=== PATIENT | male | born 1990 | race Caucasian/White ===

== ENCOUNTER 2025-07-12 13:41 | Emergency (ER) | payer OTHER, SELFPAY ==
[2025-07-12 13:44] VITALS: BP 135/80; PULSE 120; RESP 20; TEMP 37; O2SAT 98; BMI 28.0
--- NOTE | 2025-07-12 14:07 | CT_ITS ---
FINAL REPORT TECHNIQUE: After the administration of oral and intravenous contrast, axial images were obtained through the abdomen and pelvis by computed tomography. The study was performed with techniques to keep radiation dose as low as reasonably achievable, (ALARA). Individual dose reduction techniques using automated exposure control or adjustment of mA and/or kV according to the patient's size were employed. CLINICAL HISTORY: Bloody/mucous stool, abd pain, diverticulitis? FINDINGS: Abdomen: The lung bases are clear. There is moderate fatty infiltration of the liver. The gallbladder is present. The spleen, pancreas, adrenals and kidneys appear unremarkable. The aorta is normal in caliber. There is no free fluid. There are multiple scattered lymph nodes in the mesentery, particularly in the right lower quadrant. Largest of these nodes measures 2.3 cm in greatest dimension on image 54 of series 129. Pelvis: The appendix is unremarkable. The urinary bladder is unremarkable. There is no free fluid. IMPRESSION: Multiple enlarged mesenteric lymph nodes, may be due to mesenteric adenitis. Follow-up CT in 6 months time is recommended to confirm stability or regression. Reviewed, Interpreted and Dictated by Rhett Hayden MD Transcribed by Deborah Tracy Authenticated and [facility]
--- NOTE | 2025-07-12 14:09 | ED_ITS ---
Discharge Plan Disposition Patient Disposition: Home, Self-Care Referrals Follow up/Referrals: John Bazzi II, MD [Staff Physician, Gastroenterology] - See instructions Provider,MD Earle [Referring, Medical] - See instructions Activity Restrictions/Add. Instructions Additional Instructions/Restrictions: You have been seen and evaluated in the emergency department. Please follow-up with a primary care physician regarding elevated blood sugars. Your CT scan today showed adenitis. Please follow-up with Dr. Bazzi of gastroenterology. A referral has been placed on your behalf. You may call [phone]. Return to the ED with worsening symptoms. Clinical Impressions Clinical Impression: Abdominal pain Instructions Patient Instructions: DI for Acute Abdominal Pain Print Language Print Language: Slovak Discharge ED Provider: Ritchie Valentine General Adult HPI <Ritchie Valentine MD - Last Filed: 07/12/25 15:49> General Chief complaint: Abdominal Pain Stated complaint: abd Pain, blood in stool Time Seen by Provider: 07/12/25 13:54 Mode of Arrival: Ambulatory Source of Information: Patient Description of Symptoms (Recalled from ER Triage Doc. by RN): pt is here for abd pain that started last night at 10 pm, nausea but no vomiting, blood and mucous in stool, no hx of belly surgeries History of Present Illness HPI narrative: Xiang Goldberg is a 35-year-old healthy male who presents to the emergency department for complaints of abdominal pain and mucousy/blood-streaked diarrhea. Patient states that he has had chronic issues with diarrhea but is never had constipation. He states that starting last night at around 930, he had nonbloody diarrhea and sharp lower abdominal pain. He states that abdominal pain is a 2 to a 4 at baseline but will have intermittent episodes of becoming extremely sharp and painful and rates him as a 10 out of 10 at that point. He states that these are very transient and only lasts a few seconds. He states that overnight, he had mucousy stools that were streaked with blood. He is concerned because there is a significant family history of diverticulitis and his father at a similar age and his father had a partial colectomy. Patient denies any family history of colon cancer. There are colon polyps in the family. Patient states that his pain is currently a 2 out of 10. Patient has not had any vomiting. Related Data Allergies Allergy/AdvReac Type Severity Reaction Status Date / Time Penicillins Allergy Anaphylaxis Verified 07/12/25 14:12 sulfamethoxazole (From Allergy Hives Verified 07/12/25 14:13 Sulfamethoprim) trimethoprim (From Allergy Hives Verified 07/12/25 14:13 Sulfamethoprim) [facility] <Ritchie Valentine MD - Last Filed: 07/12/25 15:49> [facility] Disclaimer: The information contained in this section may have been updated after the patient was seen, as this information can be updated by other users. Social History (Updated 07/12/25 @ 15:49 by Ritchie Valentine MD) Smoking Status: Never smoker alcohol intake: never current occupational status: employed Travel in the last 8 weeks?: None Have you lived/traveled outside [place] in past 30 days?: No Contact w/someone who lives/traveled outside [place] past 30 days?: No Exposure to someone with infectious disease in past 14 days?: No Do you have a fever (greater than 100.4 F or 38 C)?: No Have you tested positive for COVID-19?: No Exposed to someone with COVID-19 in past 14 days?: No Do you have a sore throat?: No Do you have a cough?: No Do you have any weakness?: No Do you have any diarrhea?: No Are you experiencing any unusual bleeding?: No Do you have any muscle aches/pain?: No Do you have any abdominal pain?: No Are you experiencing loss of taste or smell?: No <Ritchie Valentine MD - Last Filed: 07/12/25 15:49> ROS Obtained: Yes Systems reviewed as appropriate & no additional complaints except as documented Physical Exam <Ritchie Valentine MD - Last Filed: 07/12/25 15:49> General General appearance: alert and in no apparent distress Head Head exam: atraumatic Eye Eye exam: Present normal appearance ENT ENT exam: Present normal external ear exam Neck Neck exam: Present full ROM Chest Chest inspection: Present symmetric chest wall rise Respiratory Respiratory exam: Present normal lung sounds bilaterally; Absent respiratory distress Cardiovascular Cardiovascular exam: Present regular rate and normal rhythm Abdominal Exam Abdominal exam: Present soft and tenderness (Left lower quadrant greater than right lower quadrant); Absent distention, guarding or rigidity exam: Present deferred Extremities Exam Extremities exam: Present normal inspection Back Exam Back exam: Present normal inspection Neurological Exam Neurological exam: Present alert and oriented X3 Psychiatric Psychiatric exam: Present normal affect Skin Skin exam: Present warm and dry Medical Decision Making <Ritchie Valentine MD - Last Filed: 07/12/25 15:49> Medical Records Screening: Per USPSTF and CDC recommendations, given the prevalence of disease in our region, it is our hospital?s policy to screen for HIV and viral Hepatitis for all patients aged 18 and over and those with ongoing risk factors. Matt Inquiry Pt receiving controlled substance: No Vital Signs: 07/12/25 13:44 07/12/25 17:00 Temperature 98.6 F 98.6 F Temperature Source Oral Pulse Rate 90 Pulse Rate [Left Radial] 120 H Respiratory Rate 20 20 Blood Pressure 135/79 Blood Pressure [Right Arm] 135/80 Blood Pressure Mean [Right Arm] 98 02 Sat by Pulse Oximetry 98 Oxygen Delivery Method Room Air Room Air Lab Data Lab Results 07/12/25 13:50: WBC 9.6, RBC 5.07, Hgb 15.4, Hct 44.9, MCV 88.6, MCH 30.4, MCHC 34.3, RDW 12.1, Plt Count 321, MPV 9.7, Neut % (Auto) 66.0, Lymph % (Auto) 24.7, [place] % (Auto) 8.2, Eos % (Auto) 0.6, Baso % (Auto) 0.3, Neut # (Auto) 6.3, Lymph # (Auto) 2.4, [place] # (Auto) 0.8, Eos # (Auto) 0.1, Baso # (Auto) 0.0, Sodium 140, Potassium 4.1, Chloride 97 L, Carbon Dioxide 28, Anion Gap 19.1 H, BUN 17, Creatinine 0.90, Estimated Creat Clear 142, Estimated GFR 97, Est GFR ( Amer) 118, Glucose 306 H, Hemoglobin A1c 10.4 H, Lactate 2.1, Calcium 9.5, Total Bilirubin 0.6, AST 32, ALT 49, Alkaline Phosphatase 81, C-Reactive Protein 30.9 H, Total Protein 8.0, Albumin 4.9, Globulin 3.1, Albumin/Globulin Ratio 1.6, Lipase 107, Urine Color Yellow, Urine Appearance Clear, Urine pH 5.5, Ur Specific [place] 1.015, Urine Protein Negative, Urine Glucose (UA) 3+, Urine Ketones Trace, Urine Blood Negative, Urine Nitrate Negative, Urine Bilirubin Negative, Urine Urobilinogen 0.2, Ur Leukocyte Esterase Negative, Urine RBC Occasional, Urine WBC Occasional, Ur Squamous Epith Cells Occasional, Acetone Level None detected 07/12/25 15:15: VBG pH 7.30 L, VBG pCO2 52.1 H, VBG pO2 27.3 L, VBG HCO3 25.2, VBG Total CO2 26.8, VBG O2 Saturation 48.5 L, VBG Base Excess -1.1, VBG Lactic Acid 2.0 07/12/25 13:50 07/12/25 13:50 Orders (Tests/Meds): ED MEDICATIONS Discontinued Medications Generic Name Dose Route Start Last Admin Trade Name Freq PRN Reason Stop Dose Admin Lactated Ringer's 1,000 mls @ 999 mls/hr 07/12/25 14:09 07/12/25 15:22 Lactated Ringer's 1000 Ml Bag IV 07/12/25 15:09 Infused .Q1H1M ONE Infusion Iopamidol 75 ml 07/12/25 14:52 07/12/25 14:54 Iopamidol-370 (76%);100ml Bottle IV 07/12/25 14:53 75 ml ONCE ONE Administration Sodium Chloride 10 ml 07/12/25 14:52 07/12/25 14:54 Sodium Chloride 0.9% 10ml Syr (Rad Only) IV 07/12/25 14:53 10 ml ONCE ONE Administration ORDERS Category Date Time Status CT abdomen pelvis w con Stat Cat Scan 07/12/25 14:07 Completed Acetone, Serum (Rapid) Stat Lab 07/12/25 13:50 Completed CBC w/Auto Diff [Complete Blood Count Auto Diff] Stat Lab 07/12/25 13:50 Completed CMP [Comprehensive Metabolic Panel] Stat Lab 07/12/25 13:50 Completed CRP [C-Reactive Protein] Stat Lab 07/12/25 13:50 Completed Hemoglobin A1C Stat Lab 07/12/25 13:50 Completed Lactic Acid Stat Lab 07/12/25 13:50 Completed Lipase Stat Lab 07/12/25 13:50 Completed UA [Urinalysis and Microscopic] Stat Lab 07/12/25 13:50 Completed VBG [Venous Blood Gas] Stat RT 07/12/25 15:15 Completed Medical Decision Narrative: Xiang Goldberg is a 35-year-old healthy male who presents to the emergency department for complaints of abdominal pain and mucousy/blood-streaked diarrhea. Patient states that he has had chronic issues with diarrhea but is never had constipation. He states that starting last night at around 930, he had nonbloody diarrhea and sharp lower abdominal pain. He states that abdominal pain is a 2 to a 4 at baseline but will have intermittent episodes of becoming extremely sharp and painful and rates him as a 10 out of 10 at that point. He states that these are very transient and only lasts a few seconds. He states that overnight, he had mucousy stools that were streaked with blood. He is concerned because there is a significant family history of diverticulitis and his father at a similar age and his father had a partial colectomy. Patient denies any family history of colon cancer. There are colon polyps in the family. Patient states that his pain is currently a 2 out of 10. Patient has not had any vomiting. On arrival, patient is tachycardic but otherwise hemodynamically stable. Maintaining appropriate oxygen saturation on room air. Afebrile. Physical exam, as stated above, revealed an overall well-appearing male in no distress. He has some minimal lower abdominal tenderness without guarding or rebound. No peritonitis. Cardiopulmonary exam is unremarkable. Differential diagnosis includes, but is not limited to: Diverticulitis, inflammatory bowel disease, colitis, acute pancreatitis, urinary tract infection, among others. The most morbid conditions were considered and workup was based on these. After studies show no leukocytosis, no anemia, platelets within normal limits. Electrolytes within normal limits. Anion gap is mildly elevated 19.1. Glucose is significantly elevated at 306. Patient has no history of diabetes and last ate toast earlier this morning. Lactate is normal at 2.1. CRP significantly elevated at 30.9. Lipase normal at 107. Urinalysis shows a trace ketones, 3+ glucose, negative nitrate and negative leukocyte esterase without evidence of infection. I added a VBG as well as acetone level to rule out DKA from what appears to be new diagnosis of diabetes given his elevated glucose. VBG showed a very mild respiratory acidosis with pH of 7.3, pCO2 mildly elevated at 52.1, bicarb normal at 26.8. Lactate on VBG is normal at 2. Acetone is negative. At this time, patient CT imaging is pending and care was transferred to the oncoming physician, Dr. Florez, for ultimate disposition. On my interpretation, I do not appreciate any surgical etiology on patient's CT scan. No obvious diverticular disease. Patient may have some inflammatory changes around the rectum, however this is unclear and on my interpretation. Patient will likely require close follow-up with gastroenterology if there is no acute pathology on patient's CT imaging. <Brigitte Florez, DO - Last Filed: 07/12/25 21:34> Vital Signs: 07/12/25 13:44 07/12/25 17:00 Temperature 98.6 F 98.6 F Temperature Source Oral Pulse Rate 90 Pulse Rate [Left Radial] 120 H Respiratory Rate 20 20 Blood Pressure 135/79 Blood Pressure [Right Arm] 135/80 Blood Pressure Mean [Right Arm] 98 02 Sat by Pulse Oximetry 98 Oxygen Delivery Method Room Air Room Air Lab Data Lab Results 07/12/25 13:50: WBC 9.6, RBC 5.07, Hgb 15.4, Hct 44.9, MCV 88.6, MCH 30.4, MCHC 34.3, RDW 12.1, Plt Count 321, MPV 9.7, Neut % (Auto) 66.0, Lymph % (Auto) 24.7, [place] % (Auto) 8.2, Eos % (Auto) 0.6, Baso % (Auto) 0.3, Neut # (Auto) 6.3, Lymph # (Auto) 2.4, [place] # (Auto) 0.8, Eos # (Auto) 0.1, Baso # (Auto) 0.0, Sodium 140, Potassium 4.1, Chloride 97 L, Carbon Dioxide 28, Anion Gap 19.1 H, BUN 17, Creatinine 0.90, Estimated Creat Clear 142, Estimated GFR 97, Est GFR ( Amer) 118, Glucose 306 H, Hemoglobin A1c 10.4 H, Lactate 2.1, Calcium 9.5, Total Bilirubin 0.6, AST 32, ALT 49, Alkaline Phosphatase 81, C-Reactive Protein 30.9 H, Total Protein 8.0, Albumin 4.9, Globulin 3.1, Albumin/Globulin Ratio 1.6, Lipase 107, Urine Color Yellow, Urine Appearance Clear, Urine pH 5.5, Ur Specific [place] 1.015, Urine Protein Negative, Urine Glucose (UA) 3+, Urine Ketones Trace, Urine Blood Negative, Urine Nitrate Negative, Urine Bilirubin Negative, Urine Urobilinogen 0.2, Ur Leukocyte Esterase Negative, Urine RBC Occasional, Urine WBC Occasional, Ur Squamous Epith Cells Occasional, Acetone Level None detected 07/12/25 15:15: VBG pH 7.30 L, VBG pCO2 52.1 H, VBG pO2 27.3 L, VBG HCO3 25.2, VBG Total CO2 26.8, VBG O2 Saturation 48.5 L, VBG Base Excess -1.1, VBG Lactic Acid 2.0 Orders (Tests/Meds): ED MEDICATIONS Discontinued Medications Generic Name Dose Route Start Last Admin Trade Name Freq PRN Reason Stop Dose Admin Lactated Ringer's 1,000 mls @ 999 mls/hr 07/12/25 14:09 07/12/25 15:22 Lactated Ringer's 1000 Ml Bag IV 07/12/25 15:09 Infused .Q1H1M ONE Infusion Iopamidol 75 ml 07/12/25 14:52 07/12/25 14:54 Iopamidol-370 (76%);100ml Bottle IV 07/12/25 14:53 75 ml ONCE ONE Administration Sodium Chloride 10 ml 07/12/25 14:52 07/12/25 14:54 Sodium Chloride 0.9% 10ml Syr (Rad Only) IV 07/12/25 14:53 10 ml ONCE ONE Administration ORDERS Category Date Time Status CT abdomen pelvis w con Stat Cat Scan 07/12/25 14:07 Completed Acetone, Serum (Rapid) Stat Lab 07/12/25 13:50 Completed CBC w/Auto Diff [Complete Blood Count Auto Diff] Stat Lab 07/12/25 13:50 Completed CMP [Comprehensive Metabolic Panel] Stat Lab 07/12/25 13:50 Completed CRP [C-Reactive Protein] Stat Lab 07/12/25 13:50 Completed Hemoglobin A1C Stat Lab 07/12/25 13:50 Completed Lactic Acid Stat Lab 07/12/25 13:50 Completed Lipase Stat Lab 07/12/25 13:50 Completed UA [Urinalysis and Microscopic] Stat Lab 07/12/25 13:50 Completed VBG [Venous Blood Gas] Stat RT 07/12/25 15:15 Completed Medical Decision Narrative: Xiang Goldberg is a 35-year-old healthy male who presents to the emergency department for complaints of abdominal pain and mucousy/blood-streaked diarrhea. Patient states that he has had chronic issues with diarrhea but is never had constipation. He states that starting last night at around 930, he had nonbloody diarrhea and sharp lower abdominal pain. He states that abdominal pain is a 2 to a 4 at baseline but will have intermittent episodes of becoming extremely sharp and painful and rates him as a 10 out of 10 at that point. He states that these are very transient and only lasts a few seconds. He states that overnight, he had mucousy stools that were streaked with blood. He is concerned because there is a significant family history of diverticulitis and his father at a similar age and his father had a partial colectomy. Patient denies any family history of colon cancer. There are colon polyps in the family. Patient states that his pain is currently a 2 out of 10. Patient has not had any vomiting. On arrival, patient is tachycardic but otherwise hemodynamically stable. Maintaining appropriate oxygen saturation on room air. Afebrile. Physical exam, as stated above, revealed an overall well-appearing male in no distress. He has some minimal lower abdominal tenderness without guarding or rebound. No peritonitis. Cardiopulmonary exam is unremarkable. Differential diagnosis includes, but is not limited to: Diverticulitis, inflammatory bowel disease, colitis, acute pancreatitis, urinary tract infection, among others. The most morbid conditions were considered and workup was based on these. After studies show no leukocytosis, no anemia, platelets within normal limits. Electrolytes within normal limits. Anion gap is mildly elevated 19.1. Glucose is significantly elevated at 306. Patient has no history of diabetes and last ate toast earlier this morning. Lactate is normal at 2.1. CRP significantly elevated at 30.9. Lipase normal at 107. Urinalysis shows a trace ketones, 3+ glucose, negative nitrate and negative leukocyte esterase without evidence of infection. I added a VBG as well as acetone level to rule out DKA from what appears to be new diagnosis of diabetes given his elevated glucose. VBG showed a very mild respiratory acidosis with pH of 7.3, pCO2 mildly elevated at 52.1, bicarb normal at 26.8. Lactate on VBG is normal at 2. Acetone is negative. At this time, patient CT imaging is pending and care was transferred to the oncoming physician, Dr. Florez, for ultimate disposition. On my interpretation, I do not appreciate any surgical etiology on patient's CT scan. No obvious diverticular disease. Patient may have some inflammatory changes around the rectum, however this is unclear and on my interpretation. Patient will likely require close follow-up with gastroenterology if there is no acute pathology on patient's CT imaging. DO Vikki: I assumed care of the patient. His CT scan is read as significant for mesenteric adenitis . No other significant findings. I agree with this radiology read. Considering his 1 day of symptoms, I believe his overall presentation is most consistent with an infectious diarrhea. He has been unable to provide a stool sample here in the emergency department. He will be discharged home with instructions to collect at home with an outpatient order. There is no indication to treat with antibiotics for potential infectious diarrhea at this time considering he is hemodynamically stable, afebrile, and has only had 1 day of symptoms. A1c is pending at time of discharge. Acetone levels are undetectable. I will the patient is appropriate for discharge home with outpatient GI follow- up and with instructions to follow-up expeditiously with the PCP regarding his elevated blood sugar and glucose urea with concern for diagnosis of new diabetes. Patient verbalized understanding of this follow-up plan and has no further questions. He was instructed to return to the ED should symptoms worsen. Critical Care <Ritchie Valentine MD - Last Filed: 07/12/25 15:49> Critical Care Time Critical Care Time: No
[2025-07-12 14:11] LABS: Microscopic, Urine URINE MICROSCOPIC (MICROSCOPIC)
[2025-07-12] MEDS: LACTATED RINGERS 1000ML 1,000 ML 999 ML IV (14:14)
[2025-07-12 14:16] LABS: Hematocrit 44.9 % (42.0-52.0); Hemoglobin 15.4 g/dL (14.1-18.0); Immature Granulocytes % 0.2 %; Mean Corpuscular HGB Conc 34.3 g/dL (31.8-35.4); Mean Corpuscular Hemoglobin 30.4 pg (27.0-31.2); Mean Corpuscular Volume 88.6 fl (80-94); Nucleated Red Blood Cells % 0 %; Platelet Count 321 K/mm3 (142-424); Red Blood Count 5.07 M/mm3 (4.60-6.20); Red Cell Distribution Width-SD 39.3 fL; White Blood Count 9.6 K/mm3 (4.8-10.8)
[2025-07-12 14:19] LABS: Bilirubin,Urine Negative (Negative); Chloride 97 mmol/L (98-107); Color,Urine YELLOW (Yellow); Glucose,Urine (UA) 3+ (Negative); Ketones,Urine TRACE (Negative); Leukocyte Esterase,Urine Negative (Negative); PH,Urine 5.5 (5.0-8.5); Potassium 4.1 mmoL/L (3.5-5.1); Protein,Urine Negative (Negative); Sodium 140 mmol/L (136-145); Specific Gravity, Urine 1.015 (1.005-1.030); Urobilinogen,Urine 0.2 EU/dl (0.2)
[2025-07-12 14:21] LABS: Alanine Aminotransferase 49 U/L (12-78); Anion Gap 19.1 mEq/L (5-15); Aspartate Amino Transferase 32 U/L (17-59); Blood Urea Nitrogen 17 mg/dl (9-20); Carbon Dioxide 28 mmol/L (22.0-30.0); Creatinine Clearance Estimated 142 mL/min (50-200); Creatinine,Serum 0.90 mg/dl (0.66-1.25); Estimated Glomerular Filt Rate 97 ml/min (>60); GFR (African American) 118 ML/MIN (>60)
[2025-07-12 14:22] LABS: Albumin Level 4.9 g/dl (3.5-5.0); Albumin/Globulin Ratio 1.6 (1.1-1.8); Alkaline Phosphatase 81 U/L (38-126); Bilirubin,Total 0.6 mg/dl (0.2-1.3); Calcium 9.5 mg/dl (8.4-10.2); Globulin 3.1 g/dL (1.3-3.2); Glucose 306 mg/dl (74-100); Lipase 107 U/L (23-300); Total Protein,Serum 8.0 g/dl (6.3-8.2)
[2025-07-12 14:28] LABS: C-Reactive Protein 30.9 mg/L (0-4)
[2025-07-12] MEDS: IOPAMIDOL-370 (76%);100ML BOTTLE 75 ML IV (14:54)
[2025-07-12] MEDS: SODIUM CHLORIDE 0.9% 10ML SYR (RAD ONLY) 10 ML IV (14:54)
[2025-07-12 14:58] LABS: RBC,Urine Occasional #/hpf (0-3); Squamous Epithelial Cell,Urine Occasional #/hpf (0-5); WBC,Urine Occasional #/hpf (0-3)
[2025-07-12 15:18] LABS: Acetone, Serum (Rapid) None Detected (None Detect)
[2025-07-12 15:22] LABS: Lactate Venous 2.0 mmol/L (0.4-2.0); VBG HCO3 25.2 mmol/L (23-30); VBG PCO2 52.1 mmol/L (35-51); VBG PH 7.30 mmol/L (7.31-7.41); VBG PO2 27.3 mmol/L (28-40)
[2025-07-12 17:00] VITALS: BP 135/79; PULSE 90; RESP 20; TEMP 37; O2SAT 98
[2025-07-12 17:10] LABS: Hemoglobin A1C 10.4 % (4.0-6.0)
[2025-07-12 18:10] LABS: Reflex Lactic Add Lactic Reflex
== END 2025-07-12 17:01 | disposition home or self-care (01) ==
PROVIDERS: Emergency Provider Student in an Organized Health Care Education/Training Program; PCP Family Medicine
DX: R10.30 Lower abdominal pain, unspecified (principal); R19.7 Diarrhea, unspecified; R00.0 Tachycardia, unspecified; R73.9 Hyperglycemia, unspecified; E87.29 Other acidosis
CPT/HCPCS: 74177; 80053; 81001; 82009; 82803; 83036; 83605; 83690; 85025; 86140; 96360; 99285; J7120; Q9967

== ENCOUNTER 2025-07-13 12:03 | Outpatient (CLI) | payer OTHER, SELFPAY ==
[2025-07-13 12:06] LABS: Adenovirus F 40/41, stool Not Detected (NotDetected); Clostridium Difficile A/B, PCR Not Detected (NotDetected); Cyclospora Cayetanesis Not Detected (NotDetected); Plesimonas Shigalloides, PCR Not Detected (NotDetected); Salmonella, PCR Not Detected (NotDetected); Shiga-like toxin E coli Not Detected (NotDetected); Shigella Enterovasive E coli Not Detected (NotDetected); Vibrio, PCR Not Detected (NotDetected); Yersinia Entercolitica, PCR Not Detected (NotDetected)
== END 2025-07-13 23:59 | disposition home or self-care (01) ==
LOC: LAB 12:03
PROVIDERS: Visit Provider Student in an Organized Health Care Education/Training Program
DX: R10.9 Unspecified abdominal pain (principal)
CPT/HCPCS: 87507

== ENCOUNTER 2025-07-19 09:22 | Outpatient (CLI) | payer OTHER, SELFPAY ==
[2025-07-19 10:40] LABS: Cholesterol 191 mg/dl (140-200); HDL Cholesterol 42 mg/dl (40-60); Triglycerides 178 mg/dl (30-150)
[2025-07-19 10:59] LABS: Free T4 (Free Thyroxine) 1.10 ng/dl (0.78-2.19)
[2025-07-19 11:12] LABS: Thyroid Stimulating Hormone 1.28 uIU/mL (0.465-4.68)
== END 2025-07-19 23:59 | disposition home or self-care (01) ==
PROVIDERS: PCP Internal Medicine; Visit Provider Student in an Organized Health Care Education/Training Program
DX: E11.9 Type 2 diabetes mellitus without complications (principal)
CPT/HCPCS: 36415; 80061; 82043; 83519; 84439; 84443; 84681; 86341; 86364